=== PATIENT | male | born 1980 | race Caucasian/White ===

== ENCOUNTER 2016-07-19 08:34 | Emergency (ER) | payer OTHER ==
[~2016-07-19] VITALS: Ht 160 cm; Wt 89.0 kg
[~2016-07-19 08:34] MED LIST: HYDR-3498 PO; NAPR-260 PO
[2016-07-19 08:38] VITALS: Ht 160 cm; Wt 89.0 kg
[2016-07-19] MEDS ORDERED: ONDANSETRON 4 MG INJ IV STA (09:22)
[2016-07-19] MEDS ORDERED: morphine 4 MG/ML VIAL IV STA (09:22)
[2016-07-19] MEDS ORDERED: METHYLPREDNISOLONE 125 MG INJ IV ONE (09:30)
--- NOTE | 2016-07-19 11:28 | RADRPT ---
PROCEDURE: MRI Lumbar Spine without contrast. CLINICAL INDICATION: 36-year-old male with lumbar spine pain with a saddle anesthesia. Patient hi story of lumbar spine surgery 4 years ago. TECHNIQUE: An MRI of the lumbar spine was performed with multiple sequences in the sagittal and ax ial planes without contrast. Images reviewed on a high-resolution PACS system. COMPARISON: None available at the time of dictation. FINDINGS: There are postoperative changes from prior left-sided hemilaminotomy at L4-5 (axial series image 60) . There is no significant paraspinal soft tissue swelling. There has been an interval recurrent di scs protrusion at L4-5. There is desiccation the L4 5 ml 5 S1 intervertebral discs with mild loss o f disc-space height at these levels. There are mild discogenic endplate changes at L4-5. The remai ana cristina intervertebral discs are preserved. The vertebral body heights are maintained. There is no ev idence of fracture or dislocation. 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 The conus medullaris is visible at the L1 level and appears grossly normal. The lumbar nerve roots are slightly redundant colon to severe spinal stenosis at L4-5. The paraspinal soft tissues are unremarkable. No significant giacomo casandra soft tissue swelling. L1-L2: The posterior margin of the disc is normal in appearance. No significant disc bulge or prot rusion is evident. The central canal and neural foramina are adequately patent. L2-L3: The posterior margin of the disc is normal in appearance. No significant disc bulge or prot rusion is evident. The central canal and neural foramina are adequately patent. L3-L4: There is a 2 mm annular disc bulge slightly asymmetric to the left far lateral region. Ther e is mild left neural foraminal narrowing. The thecal sac and lateral recesses are patent. There i s mild bilateral facet spondylosis. The right neural foramen is patent. L4-L5: There are postoperative changes from prior left-sided hemilaminotomy without evidence of exp ansion of the epidural space. There is a recurrent 10-11 mm left paracentral/foraminal disc protrus ion with 22 mm of superior subligamentous extrusion. There is subsequent severe effacement of the t hecal sac, measuring 5.7 mm midline AP diameter.. There is severe effacement of the left lateral re cess. There is moderate narrowing of the right lateral recess. There is severe left and mild right neural foraminal narrowing. There is mild right-sided facet spondylosis without significant buckli ng of the ligamentum flavum. The left ligamentum flavum has been resected, with partial left facete ctomy L5-S1: There is a 6-7 mm posterior central disc protrusion with moderate to severe indentation on t he ventral thecal sac. There is severe effacement of both lateral recesses. The central thecal sac measures 5.2 mm in midline AP diameter. There is moderate bilateral neural foraminal narrowing. T here is mild to moderate bilateral facet spondylosis. IMPRESSION: 1. Postoperative changes from left-sided hemilaminotomy at L4-5. There has been interval recurrent 10-11 mm left paracentral/foraminal disc protrusion with 22 mm of superior subligamentous extrusion . This results in severe effacement of the left lateral recess and thecal sac at this level. 2. 6-7 mm posterior central disc protrusion at L5-S1 with moderate to severe effacement of the lumb ar thecal sac and severe narrowing of both lateral recesses. 3. Severe narrowing of the left L4-5 neural foramen with moderate narrowing of the bilateral L5-S1 neural foramina. RPTAT: DD .Yuri Rowley MD, MD Date Time Electronically viewed and signed by .Yuri Rowley MD, MD on 07/19/2016 11:28 .S/
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
[2016-07-19 13:41] LABS: URINE BLOOD (Dip) POC Negative (NEGATIVE)
[2016-07-19] MEDS ORDERED: HYDR-906 PO (13:52)
[2016-07-19] MEDS ORDERED: NAPR-260 PO (13:52)
[2016-07-19 14:23] VITALS: BP 118/70; PULSE 69; RESP 18
== END 2016-07-19 14:24 | disposition home or self-care (01) ==
LOC: FTE 08:34
DX: M54.42 Lumbago with sciatica, left side (principal); M54.41 Lumbago with sciatica, right side
CPT/HCPCS: 72148; 81003; 96374; 96375; J2270; J2405; J2930; Z7502